=== PATIENT | male | born 1960 | race Caucasian/White ===

== ENCOUNTER 2017-04-15 02:51 | Emergency (ER) | payer SELFPAY | END 2017-04-15 04:40 | disposition home or self-care (01) | LOC: D.ER 02:51 → EDBD 02:51 → D.ER 04:40 | DX: S70.01XA Contusion of right hip, initial encounter (principal); W01.0XXA Fall on same level from slipping, tripping and stumbling without subsequent striking against object, initial encounter; Y93.89 Activity, other specified; Y92.019 Unspecified place in single-family (private) house as the place of occurrence of the external cause; M79.1 Myalgia; F17.200 Nicotine dependence, unspecified, uncomplicated ==